=== PATIENT | male | born 1980 | race Caucasian/White ===

== ENCOUNTER 2018-04-29 14:28 | Emergency (ER) | payer BC ==
[~2018-04-29] VITALS: Ht 190.5 cm; Wt 86.2 kg
[~2018-04-29 14:28] MED LIST: FIORICET 50-301 EACH PO
[2018-04-29] MEDS ORDERED: VENTOLIN HFA 1818 GM INH (14:46)
[2018-04-29] MEDS ORDERED: MEDROLDOSEPACK PO (14:57)
[2018-04-29] MEDS ORDERED: ROBAXIN 750 MG750 M1 PO (14:57)
[2018-04-29] MEDS ORDERED: NORCO 5-325 TA1 EACH PO (14:57)
[2018-04-29 15:23] VITALS: BP 107/61
== END 2018-04-29 15:24 | disposition home or self-care (01) ==
LOC: M.ERS 14:28
DX: M54.5 Low back pain (principal); G43.909 Migraine, unspecified, not intractable, without status migrainosus